=== PATIENT | female | born 2000 | race Two or more races ===

== ENCOUNTER 2024-10-09 00:42 | Emergency (ER) | payer BC, MEDICAID, SELFPAY ==
[2024-10-09 00:44] VITALS: PULSE 88; RESP 18; O2SAT 99
[2024-10-09 00:51] VITALS: BP 117/84; PULSE 92; RESP 18; TEMP 37; O2SAT 96; BMI 38.6
--- NOTE | 2024-10-09 00:58 | EKG_ITS ---
[facility] Test Date: 2024-10-09 Pat Name: KYMBERLY SOUTH Department: Room: - Gender: Female Endband Sizer: : 2000 Requested By: Mik Martel Order Number: [id number] Reading MD: Mik Martel Measurements Intervals [place] Rate: 97 P: 58 MI: 174 QRS: 11 QRSD: 96 T: 3 QT: 340 QTc: 434 Interpretive Statements SINUS RHYTHM Compared to ECG 12/05/2023 08:54:40 Sinus tachycardia no longer present T-wave abnormality no longer present /store/S0/[id number]
--- NOTE | 2024-10-09 00:59 | PD.EDURI ---
Upper Respiratory Inf. RME/HPI General Chief Complaint: General Adult/Misc Complain Stated Complaint: BODYACHES Time Seen by Provider: 10/09/24 00:58 Arrival date/time: 10/09/24 00:42 23F with history of anxiety presents to ED with 1 day of generalized body pains/chest including CP. Limitations: no limitations Related Data Home Medications ?Medication ?Instructions ?Recorded ?Confirmed fluoxetine 20 mg capsule 20 mg PO QAM 01/11/22 12/03/23 [id number] 1 mg See Rx Instructions .Route .COMPLEX 12/03/23 12/03/23 tablet Previous Rx's ?Medication ?Instructions ?Recorded hydrocodone 5 mg-acetaminophen 325 1 tab PO Q6H PRN pain #20 tabs 12/04/23 mg tablet amoxicillin 875 mg-potassium 1 tab PO Q12H #10 tabs 12/07/23 clavulanate 125 mg tablet docusate sodium 100 mg capsule 100 mg PO BID PRN constipation #30 12/07/23 caps ferrous sulfate 325 mg (65 mg 325 mg PO BID #60 tabs 12/07/23 iron) tablet,delayed release ibuprofen 600 mg tablet 600 mg PO Q6H PRN pain #30 tabs 12/07/23 Allergies Allergy/AdvReac Type Severity Reaction Status Date / Time No Known Allergies Allergy Verified 12/03/23 17:50 Review of Systems Review of Systems Systems Reviewed: All systems reviewed, normal except as documented Constitutional Constitutional: Reports system reviewed and no additional complaints, except as documented, Reports as per HPI, Reports body ache(s), Denies fever(s) and Denies headache(s) ENT Ears, Nose, Mouth, and Throat: Denies disequilibrium and Denies headache(s) Cardiovascular Cardiovascular: Reports system reviewed and no additional complaints, except as documented, Reports as per HPI, Reports chest pain and Denies dyspnea Respiratory Respiratory: Reports system reviewed and no additional complaints, except as documented, Denies cough and Denies dyspnea Gastrointestinal Gastrointestinal: Reports system reviewed and no additional complaints, except as documented, Denies abdominal pain, Denies nausea and Denies vomiting Neurologic Neurologic: Reports system reviewed and no additional complaints, except as documented, Denies confusion, Denies disequilibrium and Denies headache(s) Psychiatric Psychiatric: Denies confusion Past Medical History Past Medical History NEUROLOGIC: Negative Neurological Disorders CARDIAC: Negative Cardiac Disorders or Congestive Heart Failure RESPIRATORY: Negative Chronic Obstructive Pulmonary Disease (COPD) GASTROINTESTINAL: Negative Gastrointestinal Disorders GENITOURINARY: Negative Genitourinary Disorders or Renal Disease MUSCULOSKELETAL: Negative Musculoskeletal Disorders ENDOCRINE: Negative Endocrine Disorders, Diabetes Mellitus Type 1 or Diabetes Mellitus Type 2 HEMATOLOGIC: Negative Blood Disorders PSYCHO/SOCIAL: Positive Depression (prozac 2 years) OTHER HISTORY: Negative Autoimmune Disease, Blood Transfusions, Blood Transfusion Reaction, Anesthesia Reactions, MRSA or Clostridium Difficile Family History FAMILY HISTORY: Negative Family Cardiac Disorders Surgical History SURGICAL: Negative Endocrine Surgery, Abdominal Surgery, Nephrectomy, Joint Replacement, Neurologic Surgery, Mastectomy or Vasectomy Social History SMOKING STATUS: Former smoker SECOND HAND EXPOSURE: No ED Exam General Limitations: Present no limitations General appearance: Present alert and in no apparent distress Head Head exam: Present atraumatic Eye Eye exam: Present normal appearance, PERRL and EOMI ENT ENT exam: Present normal exam, normal oropharynx and mucous membranes moist Neck Neck exam: Present normal inspection, full ROM and trachea midline Chest Chest inspection: Present normal inspection and symmetric chest wall rise Respiratory Respiratory exam: Present normal lung sounds bilaterally Cardiovascular Cardiovascular exam: Present regular rate, normal rhythm and normal heart sounds Abdominal Exam Abdominal exam: Present soft and normal bowel sounds Extremities Exam Extremities exam: Present normal inspection and full ROM Back Exam Back exam: Present normal inspection and full ROM Neurological Exam Neurological exam: Present alert, oriented X3 and CN II-XII intact Psychiatric Psychiatric exam: Present normal affect and normal mood Skin Skin exam: Present warm, dry, intact and normal color Course Quality Measures none Orders Category Date Time Status Bedside Influenza A&B Antigen Test NOW Care 10/09/24 00:58 Completed EKG (ED ONLY) *Do not use* NOW Care 10/09/24 00:59 Completed EKG (ED Only) Stat Exams 10/09/24 00:58 Draft Naproxen [Naprosyn] Med 10/09/24 00:58 Discontinued 500 mg PO X1 ONE Vital Signs Vital signs: Vital Signs Temperature 98.6 F 10/09/24 00:51 Pulse Rate 92 10/09/24 00:51 Respiratory Rate 18 10/09/24 00:51 Blood Pressure 117/84 10/09/24 00:51 Pulse Oximetry (%) 96 10/09/24 00:51 Oxygen Delivery Method Room Air 10/09/24 00:51 O2 at 96% on RA and WNLs Upper Respiratory Infection MDM Narrative MDM Narrative:: 23F with history of anxiety presents to ED with 1 day of generalized body pains/chest including CP. Physical exam reveals clear ENT and lungs. RRR. Patient is afebrile, calm, and alert. Flu A/B+. EKG is NSR. Patient data External records reviewed:: [facility] previous records Clinical information provided by:: patient Social determinants that could affect healthcare access:: none Patient has the following chronic illnesses:: none How is presenting disease/condition affected by chronic disease/condition?: no chronic disease Evaluation data The following diagnostics were reviewed and interpreted by me:: lab results and EKG tracing(s) Lab and/or radiology exams considered but not ordered:: ordered Interpretation Summary: above Medications / Prescriptions Medications or Prescriptions considered but not ordered:: ordered Medication administrations:: Medication Administration History Discontinued Medications Naproxen (Naproxen 250 Mg Tablet) 500 mg PO X1 ONE Stop: 10/09/24 00:59 above Consultations Consultation(s) initiated? (list below): No Diagnosis Upper Respiratory Differential Diagnosis: upper respiratory infection, croup, otitis media, sinusitis, viral infection, bronchitis, influenza and pharyngitis Most likely diagnosis given after review of the tests above:: flu A/B Admission Indicated Admission indicated?: not indicated Admission Request Was there a request for admission?: No Disposition Plan Disposition Plan: Discharge Discharge Attestation Discharge Attestation: The patient and all family members were given an opportunity to ask questions and understood the discharge instructions. Discharge instructions specifically effects, indications for sooner follow up or return to the emergency department, and the expected course of current diagnosis. Patient condition: Stable Discharge Plan Plan Patient Disposition: HOME (Self Care) Disposition Comment: Stable Prescriptions/Referrals Prescriptions/Med Rec: No Action fluoxetine 20 mg capsule 20 mg PO QAM Patient Comments: TAKE 1 CAPSULE BY MOUTH EVERY DAY IN THE MORNING 1 mg Tablet See Rx Instructions .ROUTE .COMPLEX Rx Instructions: n/a hydrocodone-acetaminophen 5-325 mg tablet 1 tab PO Q6H MDD 4 PRN (Reason: pain) Qty: 20 0RF amoxicillin-pot clavulanate 875-125 mg tablet 1 tab PO Q12H Qty: 10 0RF ibuprofen 600 mg tablet 600 mg PO Q6H PRN (Reason: pain) Qty: 30 0RF docusate sodium 100 mg capsule 100 mg PO BID PRN (Reason: constipation) Qty: 30 0RF ferrous sulfate 325 mg (65 mg iron) tablet,delayed release (DR/EC) 325 mg PO BID Qty: 60 1RF Problem List Clinical Impression: Influenza A, Influenza B Patient/Caregiver Discharge Instructions Education Materials: ED Influenza (Adult) Additional Instructions: Please follow-up with PCP within 24-48 hours and return immediately if symptoms worsen. Ibuprofen/Tylenol can be used simultaneously for greater fever/pain control. Benadryl is good for cough, congestion, and sleep. 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 Edwards
== END 2024-10-09 01:26 | disposition home or self-care (01) ==
LOC: SERX 01:28
PROVIDERS: Emergency Provider Emergency Medicine; PCP Family Medicine
DX: J10.1 Influenza due to other identified influenza virus with other respiratory manifestations (principal)
CPT/HCPCS: 87400; 93005; 99283

== ENCOUNTER 2025-03-24 01:03 | Emergency (ER) | payer MEDICAID, SELFPAY ==
[2025-03-24 01:04] VITALS: BMI 41.5
[2025-03-24 01:47] VITALS: BP 106/92; PULSE 90; RESP 18; TEMP 36.8; O2SAT 95
--- NOTE | 2025-03-24 01:55 | PD.EDABDPN ---
ED Abdominal Pain RME/HPI General Chief Complaint: Abdominal Pain Stated complaint: EPIGASTRIC PAIN Time seen by provider: 03/24/25 02:09 Arrival date/time: 03/24/25 01:03 RME / HPI RME / HPI narrative: This section includes all my notes and documentations, including HPI, PE, and ED course. Rufus Anderson MD HPI: 24yo female here with epigastric pain. Patient has had similar epigastric cramping in the past possibly due to gastritis. Her pain became sharp and severe tonight and did not go away despite taking OTC gas pill. No vomiting, diarrhea, or UTI symptoms. Last bowel movement was earlier today. PSH includes . No other complaints reported. ROS: All negative except as documented in HPI. Physical Exam: General: Alert and oriented. In obvious pain. Eyes: Conjunctivae and lids clear. ENT: No nasal congestion. Neck: Supple. Heart: RRR. Lungs: No respiratory distress. Good air movement. No rhonchi, wheezing, rales. Abdomen: Soft and epigastric tenderness. Normal bowel sounds. No distension. No rebound or guarding. Back: No CVA tenderness. Skin: Warm and dry. Neuro: Alert and oriented X 3. Before diagnostic tests, she was given famotidine and Protonix and viscous lidocaine. No improvement noted. I reviewed all diagnostic test results. My review of the gallbladder US report is cholelithiasis. Blood tests unremarkable. At this point, diagnoses include cholelithiasis. Treatment after diagnostic tests included Morphine and Toradol and Zofran. Significant improvement noted. Recommend outpatient management. Based on my best medical judgment, made decision no further evaluation or treatment indicated at this time. Patient understands and agrees to the discharge instructions customized and printed, see below. Discharge Instructions from Dr. Anderson: 1. After evaluation, your symptoms are due to gallstone(s). You need gallbladder to help digest fatty foods. 2. So to prevent future attacks, avoid all fatty and oily and greasy and buttery and dairy foods. This usually means take out and fast food restaurants. 3. Zofran for nausea/vomiting. Tylenol with codeine for severe pain. Clear liquid diet for 24 hours then advance diet slowly as tolerated. 4. See a private doctor on 03/25/2025 for recheck and further care. Ask to review all test results and official radiology reports, to make sure you receive all necessary follow-ups and monitoring. Ask for help seeing a general surgeon to discuss elective surgery. 5. Seek immediate medical care with intolerable pain, fever, or with any concerns. Rufus Anderson MD Related Data Home Medications ?Medication ?Instructions ?Recorded ?Confirmed fluoxetine 20 mg capsule 20 mg PO QAM 01/11/22 12/03/23 [id number] 1 mg See Rx Instructions .Route .COMPLEX 12/03/23 12/03/23 tablet Previous Rx's ?Medication ?Instructions ?Recorded hydrocodone 5 mg-acetaminophen 325 1 tab PO Q6H PRN pain #20 tabs 12/04/23 mg tablet amoxicillin 875 mg-potassium 1 tab PO Q12H #10 tabs 12/07/23 clavulanate 125 mg tablet docusate sodium 100 mg capsule 100 mg PO BID PRN constipation #30 12/07/23 caps ferrous sulfate 325 mg (65 mg 325 mg PO BID #60 tabs 12/07/23 iron) tablet,delayed release ibuprofen 600 mg tablet 600 mg PO Q6H PRN pain #30 tabs 12/07/23 acetaminophen 300 mg-codeine 30 mg 2 tab PO Q8H PRN pain #20 tabs 03/24/25 tablet ondansetron 4 mg disintegrating 4 mg PO TID PRN nausea and 03/24/25 tablet vomiting 30 days #10 tabs Allergies Allergy/AdvReac Type Severity Reaction Status Date / Time No Known Allergies Allergy Verified 03/24/25 01:11 Review of Systems Review of Systems Systems Reviewed: All systems reviewed, normal except as documented Past Medical History Past Medical History NEUROLOGIC: Negative Neurological Disorders CARDIAC: Negative Cardiac Disorders or Congestive Heart Failure RESPIRATORY: Negative Chronic Obstructive Pulmonary Disease (COPD) GASTROINTESTINAL: Negative Gastrointestinal Disorders GENITOURINARY: Negative Genitourinary Disorders or Renal Disease MUSCULOSKELETAL: Negative Musculoskeletal Disorders ENDOCRINE: Negative Endocrine Disorders, Diabetes Mellitus Type 1 or Diabetes Mellitus Type 2 HEMATOLOGIC: Negative Blood Disorders PSYCHO/SOCIAL: Positive Depression (prozac 2 years) OTHER HISTORY: Negative Autoimmune Disease, Blood Transfusions, Blood Transfusion Reaction, Anesthesia Reactions, MRSA or Clostridium Difficile Family History FAMILY HISTORY: Negative Family Cardiac Disorders Surgical History SURGICAL: Negative Endocrine Surgery, Abdominal Surgery, Nephrectomy, Joint Replacement, Neurologic Surgery, Mastectomy or Vasectomy Social History SMOKING STATUS: Current some day smoker SECOND HAND EXPOSURE: No ED Exam Narrative Physical exam: As noted in HPI. Course Quality Measures none Orders Category Date Time Status Saline [Insert IV] NOW Care 03/24/25 02:10 Completed US gall bladder Stat Exams 03/24/25 02:12 Completed Amylase Stat Lab 03/24/25 02:46 Completed Bilirubin,Direct Stat Lab 03/24/25 02:46 Completed CBC Stat Lab 03/24/25 02:46 Completed CMP [Comprehensive Metabolic Panel] Stat Lab 03/24/25 02:46 Completed HCG,Qualitative Serum Stat Lab 03/24/25 02:46 Completed Lipase Stat Lab 03/24/25 02:46 Completed Magnesium Stat Lab 03/24/25 02:46 Completed Famotidine Inj [Pepcid Inj] Med 03/24/25 02:11 Discontinued 20 mg IVP X1 ONE Ketorolac Inj [Toradol Inj] Med 03/24/25 02:58 Discontinued 30 mg IVP X1 ONE Lidocaine 2% Viscous [Xylocaine 2% Viscous] Med 03/24/25 02:12 Discontinued 15 ml PO X1 ONE Morphine Inj Med 03/24/25 02:58 Discontinued 4 mg IVP X1 ONE Ondansetron Inj [Zofran Inj] Med 03/24/25 02:11 Discontinued 4 mg IVP X1 ONE Pantoprazole Inj [Protonix Inj] Med 03/24/25 02:11 Discontinued 40 mg IVP X1 ONE Sodium Chloride 0.9% 1000 ml [Ns] 1,000 ml Med 03/24/25 02:11 Discontinued IV 999 mls/hr Vital Signs Vital signs: Vital Signs Temperature 98.3 F 03/24/25 01:47 Pulse Rate 90 03/24/25 01:47 Respiratory Rate 18 03/24/25 01:47 Blood Pressure 106/92 H 03/24/25 01:47 Pulse Oximetry (%) 95 03/24/25 01:47 Oxygen Delivery Method Room Air 03/24/25 01:47 Abdominal Pain MDM MDM Narrative MDM Narrative:: 24yo female here with epigastric pain. Patient has had similar epigastric cramping in the past possibly due to gastritis. Her pain became sharp and severe tonight and did not go away despite taking OTC gas pill. No vomiting, diarrhea, or UTI symptoms. Last bowel movement was earlier today. PSH includes . No other complaints reported. Patient data External records reviewed:: [facility] previous records (Per chart review, patient was seen here on 10/09/24 for influenza.) Clinical information provided by:: patient Social determinants that could affect healthcare access:: none Patient has the following chronic illnesses:: none How is presenting disease/condition affected by chronic disease/condition?: no chronic disease Evaluation data The following diagnostics were reviewed and interpreted by me:: lab results and radiology exam(s) Lab and/or radiology exams considered but not ordered:: none Interpretation Summary: Before diagnostic tests, she was given famotidine and Protonix and viscous lidocaine. No improvement noted. I reviewed all diagnostic test results. My review of the gallbladder US report is cholelithiasis. Blood tests unremarkable. At this point, diagnoses include cholelithiasis. Treatment after diagnostic tests included Morphine and Toradol and Zofran. Significant improvement noted. Recommend outpatient management. Medications / Prescriptions Medications or Prescriptions considered but not ordered:: none Medication administrations:: Medication Administration History Discontinued Medications Famotidine (Famotidine Inj 10 Mg/Ml Vial 2 Ml) 20 mg IVP X1 ONE Stop: 03/24/25 02:12 Last Admin: 03/24/25 02:26 Dose: 20 mg Documented By: CVL Sodium Chloride (Ns) 1,000 mls @ 999 mls/hr IV .Q1H1M ONE Stop: 03/24/25 03:11 Last Infusion: 03/24/25 04:18 Dose: Infused Documented By: Admin: 03/24/25 02:47 Dose: 999 mls/hr Documented By: CVL Ketorolac Tromethamine (Ketorolac Inj 30 Mg/Ml Vial) 30 mg IVP X1 ONE Stop: 03/24/25 02:59 Last Admin: 03/24/25 03:36 Dose: 30 mg Documented By: CVL Lidocaine HCl (Lidocaine Viscous 2% 15 Ml Udc) 15 ml PO X1 ONE Stop: 03/24/25 02:13 Last Admin: 03/24/25 02:28 Dose: 15 ml Documented By: CVL Morphine Sulfate (Morphine Sulf Inj 10 Mg/Ml Vial) 4 mg IVP X1 ONE Stop: 03/24/25 02:59 Last Admin: 03/24/25 04:55 Dose: Not Given Documented By: CVL Non-Admin Reason: Change of Condition Ondansetron HCl (Ondansetron Inj 2 Mg/Ml Inj 2 Ml) 4 mg IVP X1 ONE; Protocol Stop: 03/24/25 02:12 Last Admin: 03/24/25 02:25 Dose: 4 mg Documented By: CVL Pantoprazole Sodium (Pantoprazole Inj 40 Mg Vial) 40 mg IVP X1 ONE Stop: 03/24/25 02:12 Last Admin: 03/24/25 02:26 Dose: 40 mg Documented By: CVL Before diagnostic tests, she was given famotidine and Protonix and viscous lidocaine. No improvement noted. I reviewed all diagnostic test results. My review of the gallbladder US report is cholelithiasis. Blood tests unremarkable. At this point, diagnoses include cholelithiasis. Treatment after diagnostic tests included Morphine and Toradol and Zofran. Significant improvement noted. Recommend outpatient management. Consultations Consultation(s) initiated? (list below): No Diagnosis Differential diagnosis abdominal pain: constipation, diverticulitis, endometriosis, gastroenteritis, pancreatitis, small bowel obstruction and other (cholelithiasis, cholecystitis) Most likely diagnosis given after review of the tests above:: Cholelithiasis Admission Indicated Admission indicated?: not indicated Explain why admission is indicated or not indicated:: With significant improvement and no condition needing emergent intervention, there was no indication for admission. Admission Request Was there a request for admission?: No Disposition Plan Disposition Plan: Discharge Discharge Attestation Discharge Attestation: The patient and all family members were given an opportunity to ask questions and understood the discharge instructions. Discharge instructions specifically effects, indications for sooner follow up or return to the emergency department, and the expected course of current diagnosis. Patient condition: Stable Discharge Plan Plan Patient Disposition: HOME (Self Care) Prescriptions/Referrals Prescriptions/Med Rec: New acetaminophen-codeine 300-30 mg tablet 2 tab PO Q8H MDD 6 PRN (Reason: pain) Qty: 20 0RF ondansetron 4 mg tablet,disintegrating 4 mg PO TID PRN (Reason: nausea and vomiting) 30 Days Qty: 10 0RF No Action fluoxetine 20 mg capsule 20 mg PO QAM Patient Comments: TAKE 1 CAPSULE BY MOUTH EVERY DAY IN THE MORNING 1 mg Tablet See Rx Instructions .ROUTE .COMPLEX Rx Instructions: n/a hydrocodone-acetaminophen 5-325 mg tablet 1 tab PO Q6H MDD 4 PRN (Reason: pain) Qty: 20 0RF amoxicillin-pot clavulanate 875-125 mg tablet 1 tab PO Q12H Qty: 10 0RF ibuprofen 600 mg tablet 600 mg PO Q6H PRN (Reason: pain) Qty: 30 0RF docusate sodium 100 mg capsule 100 mg PO BID PRN (Reason: constipation) Qty: 30 0RF ferrous sulfate 325 mg (65 mg iron) tablet,delayed release (DR/EC) 325 mg PO BID Qty: 60 1RF Referrals: Pato Sosa MD [Primary Care Provider] - In 1 week Problem List Clinical Impression: Gallstone Patient/Caregiver Discharge Instructions Discharge Activity: activity as tolerated Education Materials: ED Gallstones with Biliary Colic Additional Instructions: Discharge Instructions from Dr. Anderson: 1. After evaluation, your symptoms are due to gallstone(s).? You need gallbladder to help digest fatty foods. 2. So to prevent future attacks, avoid all fatty and oily and greasy and buttery and dairy foods.? This usually means take out and fast food restaurants. 3. Zofran for nausea/vomiting.? Tylenol with codeine for severe pain.? Clear liquid diet for 24 hours then advance diet slowly as tolerated. 4. See a private doctor on 03/25/2025 for recheck and further care. Ask to review all test results and official radiology reports, to make sure you receive all necessary follow-ups and monitoring. Ask for help seeing a general surgeon to discuss elective surgery. 5. Seek immediate medical care with intolerable pain, fever, or with any concerns. Print Language: Vietnamese Stand Alone Forms: Ree Award Info., Patient Portal Info Letter
--- NOTE | 2025-03-24 02:12 | XR_ITS ---
Examination: Abdomen sonogram, Limited Date and time of exam: March 24, 2025 0229 hours INDICATIONS: Epigastric pain beginning 5 hours ago Technique: Real-time mehta scale transabdominal sonographic images of the upper abdomen obtained. Findings: 13 x 19 mm gallstone Normal gallbladder wall 0.3 cm Common bile duct 0.2 cm Pancreatic head 2.7 cm Liver 15.6 cm fatty infiltration lobular contour Normal hepatopedal portal venous flow Patent IVC IMPRESSION: Cholelithiasis, negative for cholecystitis Primary hepatocellular disease, no focal liver lesions
[2025-03-24] MEDS: ONDANSETRON INJ 2 MG/ML INJ 2 ML 4 MG IVP (02:25)
[2025-03-24] MEDS: FAMOTIDINE INJ 10 MG/ML VIAL 2 ML 20 MG IVP (02:26)
[2025-03-24] MEDS: LIDOCAINE VISCOUS 2% 15 ML UDC PO (02:28)
[2025-03-24] MEDS: SODIUM CHLORIDE 0.9% 1000 ML 1,000 ML 999 ML IV (02:47)
[2025-03-24 02:56] LABS: Basophils # (Auto) 0.1 Thou/mm3 (0.0-0.2); Basophils % (Auto) 0 % (0-2.5); Eosinophils # (Auto) 0.2 Thou/mm3 (0.0-0.5); Eosinophils % (Auto) 2 % (0-10); Hematocrit 40.9 % (36.0-46.0); Hemoglobin 13.2 g/dL (12.0-16.0); Immature Granulocytes Auto 0.04 Thou/mm3 (0.00-0.00); Lymphocytes # (Auto) 2.6 Thou/mm3 (1.0-4.8); Lymphocytes % (Auto) 19 % (10-50); Mean Corpuscular HGB Conc 32.3 g/dl (31.0-37.0); Mean Corpuscular Hemoglobin 27.6 pg (25.0-35.0); Mean Corpuscular Volume 85 fL (80-100); Monocytes # (Auto) 0.8 Thou/mm3 (0.0-0.8); Monocytes % (Auto) 6 % (0-12); Neutrophils # (Auto) 10.0 Thou/mm3 (1.8-7.7); Neutrophils % (Auto) 73 % (37-80); Nucleated Red Blood Cell # 0.00 Thou/mm3 (0.00-0.00); Nucleated Red Blood Cell % 0 /100 WBC (0); Platelet Count 323 Thou/mm3 (140-440); RDW Standard Deviation 41.7 fL (36.4-46.3); Red Blood Count 4.79 Miln/mm3 (4.00-5.20); White Blood Count 13.8 Thou/mm3 (3.6-11.0)
[2025-03-24 03:20] LABS: Alanine Aminotransferase 70 U/L (10-49); Albumin, Serum 4.3 gm/dL (3.5-5.0); Albumin/Globulin Ratio 1.8 (1.2-2.2); Alkaline Phosphatase 81 U/L (46-116); Amylase 49 U/L (30-118); Anion Gap 6 (7-16); Aspartate Amino Transferase 116 U/L (0-34); BUN/Creatinine Ratio 18 Ratio (12-20); Bilirubin,Direct 0.2 mg/dL (0.0-0.3); Bilirubin,Total 0.5 mg/dL (0.3-1.2); Blood Urea Nitrogen 14 mg/dL (9-23); Calcium 9.6 mg/dL (8.3-10.6); Calcium (Corrected) 9.6 mg/dL (8.5-10.1); Carbon Dioxide 29.1 mMol/L (20.0-31.0); Chloride 105 mMol/L (98-107); Creatinine (Component) 0.8 mg/dL (0.6-1.3); Estimated Creatinine Clearance 115.4 mL/min (>60); Globulin 2.4 gm/dL (2.3-3.5); Glucose 124 mg/dL (74-106); Lipase 38 U/L (12-53); Magnesium 1.9 mg/dL (1.6-2.6); Osmolality,Calculated 280 (275-295); Potassium 4.2 mMol/L (3.4-5.1); Sodium 140 mMol/L (136-145); Total Protein 6.7 gm/dL (5.7-8.2); eGFR > 60 See Note
[2025-03-24] MEDS: KETOROLAC INJ 30 MG/ML VIAL IVP (03:36)
[2025-03-24 03:59] LABS: HCG,Qualitative Serum Negative
[2025-03-24 04:21] VITALS: BP 110/84; PULSE 92; RESP 16; O2SAT 99
[2025-03-24 04:56] VITALS: RESP 18
== END 2025-03-24 04:57 | disposition home or self-care (01) ==
PROVIDERS: Emergency Provider Emergency Medicine; PCP Family Medicine
DX: K80.20 Calculus of gallbladder without cholecystitis without obstruction (principal)
CPT/HCPCS: 36415; 76705; 80053; 81001; 82150; 82248; 83690; 83735; 84703; 85025; 96361; 96374; 96375; 99283; J1885; J2405; J2470; J3490; J7030